=== PATIENT | male | born 1965 | race Caucasian/White ===

== ENCOUNTER → 2021-01-28 | Outpatient (CLI) | payer OTHER ==
[2021-01-28 11:29] LABS: HEMOGLOBIN 15.5 gm/dl (14.0-17.5); RED BLOOD COUNT 5.14 M/UL (4.20-5.50); WHITE BLOOD COUNT 6.9 K/UL (4.5-11.0)
[2021-01-28 12:03] LABS: BUN/CREATININE RATIO 21 (0-10)
[2021-01-29 08:14] LABS: THYROXINE (T4) 9.7 ug/dL (4.5-12.0)
== END ==
LOC: LAB 11:01
PROVIDERS: Nurse Practitioner
DX: Z00.00 Encounter for general adult medical examination without abnormal findings (principal); R05 Cough; Z12.5 Encounter for screening for malignant neoplasm of prostate; Z86.16 Personal history of COVID-19; R91.8 Other nonspecific abnormal finding of lung field
CPT/HCPCS: 36415; 71046; 80053; 80061; 84153; 84436; 84443; 84480; 85025; 85652; 86140